=== PATIENT | male | born 1965 | race Caucasian/White ===

== ENCOUNTER 2023-01-14 13:58 | Emergency (ER) | payer OTHER ==
[~2023-01-14] VITALS: Ht 165.1 cm; Wt 75.0 kg
[2023-01-14 14:08] VITALS: BP 187/56
[2023-01-14 17:50] LABS: EOSINOPHILS % 1.5 % (0.0-5.0); HEMATOCRIT. 38.1 % (42.0-52.0); MEAN CORPUSCULAR HEMOGLOBIN 30.6 pg (28.0-32.0); MEAN CORPUSCULAR VOLUME 89.5 fL (80.0-94.0); MEAN PLATELET VOLUME 8.9 fl (7.4-10.4); MONOCYTES % 6.9 % (2.0-8.0); NEUTROPHILS % 53.6 % (40.0-76.0); PLATELET 255 x1000/uL (130-400); RED BLOOD CELL COUNT 4.26 mill/uL (4.7-6.1); RED CELL DISTRIBUTION WIDTH 12.9 % (11.6-14.6)
[2023-01-14 17:58] LABS: CHLORIDE 107 mEq/L (98-107)
== END 2023-01-14 16:35 | disposition home or self-care (01) ==
LOC: ER 13:58
DX: S09.8XXA Other specified injuries of head, initial encounter (principal); I10 Essential (primary) hypertension; W22.8XXA Striking against or struck by other objects, initial encounter; Y93.89 Activity, other specified; Y92.89 Other specified places as the place of occurrence of the external cause; Y99.8 Other external cause status
CPT/HCPCS: 36415; 80053; 85025; 99283